=== PATIENT | male | born 1960 | race Caucasian/White ===

== ENCOUNTER 2018-03-16 12:27 | Inpatient (IN) | payer OTHER ==
[~2018-03-16] VITALS: Ht 182.9 cm; Wt 81.1 kg
[2018-03-16 13:09] LABS: HEMATOCRIT 45.6 % (38.0-50.0); HEMOGLOBIN 16.2 G/DL (12.5-16.6); MCH 31.8 PG (29.0-34.0); MCHC 35.5 G/DL (30.0-36.0); MCV 89.4 FL (86-99); PLATELET COUNT 172 K/uL (156-360); RBC DIS.WIDTH-CV 12.7 % (11.8-14.6); RBC DIS.WIDTH-SD 41.7 % (39-53)
[2018-03-16 13:42] LABS: ALBUMIN 4.4 G/DL (3.2-4.8); ALKALINE PHOSPHATASE 70 IU/L (3-129); ALT (GPT) 19 IU/L (3-49); AST (GOT) 15 IU/L (2-34); CHLORIDE 101 MEQ/L (99-109); GFR ESTIMATE (CALCULATED) > 59 mL/min/ (58.99-99999); GLUCOSE 121 mg/dL (70-99); POTASSIUM 4.2 MEQ/L (3.7-5.4); SODIUM 138 MEQ/L (136-147); TOTAL PROTEIN 6.9 G/DL (6.4-8.3); UREA NITROGEN (BUN) 11 mg/dL (9-23)
[2018-03-16 14:55] LABS: LIPASE 37 U/L (1.0-51.0)
[2018-03-16 16:18] LABS: APPEARANCE CLEAR ((CLEAR)); BILIRUBIN NEGATIVE; BLOOD NEGATIVE; COLOR STRAW ((YELLOW)); GLUCOSE (STRIP) NEGATIVE; KETONES 5; LEUKOCYTES NEGATIVE; NITRITE NEGATIVE; PROTEIN (STRIP) NEGATIVE; UCUL ADDED? NO; UROBILINOGEN 0.2 MG/DL (0.2-1.0)
[2018-03-16] MEDS ORDERED: OMEPRAZOLE20 M2 PO (19:01)
[2018-03-16] MEDS ORDERED: ADVIL,NUPRIN,M200 MG PO (19:01)
[2018-03-16 23:09] VITALS: BP 134/81
[2018-03-17 03:40] VITALS: BP 130/70
[2018-03-17 06:11] LABS: BASOPHIL (%) 0.1 % (0-1); EOSINOPHIL (%) 0 % (0-5); HEMATOCRIT 43.3 % (38.0-50.0); HEMOGLOBIN 14.8 G/DL (12.5-16.6); IMMATURE GRANULOCYTE (%) 0.6 % (0.0-0.7); LYMPHOCYTE (%) 2.6 % (15-42); LYMPHOCYTE COUNT 0.5 K/uL (1.0-2.8); MCH 30.5 PG (29.0-34.0); MCHC 34.2 G/DL (30.0-36.0); MCV 89.1 FL (86-99); MONOCYTE (%) 4.6 % (3-12); MONOCYTE COUNT 0.9 K/uL (0-0.8); NEUTROPHIL (%) 92.1 % (45-76); NEUTROPHIL COUNT 16.9 K/uL (1.8-6.4); PLATELET COUNT 168 K/uL (156-360); RBC DIS.WIDTH-CV 13.1 % (11.8-14.6); RBC DIS.WIDTH-SD 42.6 % (39-53); RED BLOOD COUNT 4.86 M/uL (4.00-5.50); WHITE BLOOD COUNT 18.4 K/uL (4.1-10.2)
[2018-03-17 06:35] LABS: C-REACTIVE PROTEIN 84.6 MG/L (0-10); CHLORIDE 102 MEQ/L (99-109); GFR ESTIMATE (CALCULATED) > 59 mL/min/ (58.99-99999); GLUCOSE 161 mg/dL (70-99); POTASSIUM 4.1 MEQ/L (3.7-5.4); SODIUM 136 MEQ/L (136-147); UREA NITROGEN (BUN) 12 mg/dL (9-23)
[2018-03-17 08:25] VITALS: BP 122/68
[2018-03-17 12:40] VITALS: BP 126/65
[2018-03-17 16:09] VITALS: BP 124/73
[2018-03-17 20:21] VITALS: BP 147/82
[2018-03-17 23:57] VITALS: BP 148/84
[2018-03-18 03:18] VITALS: BP 148/86
[2018-03-18 08:09] VITALS: BP 152/80
[2018-03-18 08:49] LABS: HEMATOCRIT 38.7 % (38.0-50.0); HEMOGLOBIN 13.7 G/DL (12.5-16.6); MCH 31.4 PG (29.0-34.0); MCHC 35.4 G/DL (30.0-36.0); MCV 88.8 FL (86-99); RBC DIS.WIDTH-CV 13.2 % (11.8-14.6); RBC DIS.WIDTH-SD 43.4 % (39-53); RED BLOOD COUNT 4.36 M/uL (4.00-5.50); WHITE BLOOD COUNT 10.4 K/uL (4.1-10.2)
[2018-03-18 09:36] LABS: BASOPHIL (%) 0.4 % (0-1); EOSINOPHIL (%) 0.1 % (0-5); IMMATURE GRANULOCYTE (%) 0.5 % (0.0-0.7); LYMPHOCYTE (%) 9.4 % (15-42); MONOCYTE (%) 8.1 % (3-12); MONOCYTE COUNT 0.9 K/uL (0-0.8); NEUTROPHIL (%) 81.5 % (45-76); NEUTROPHIL COUNT 8.5 K/uL (1.8-6.4); PLAT.SUFFICIENCY DECREASED
[2018-03-18 09:48] LABS: PLATELET COUNT 90 K/uL (156-360)
[2018-03-18] MEDS ORDERED: HYDROCODON-ACE1 EAC7 PO (11:09)
[2018-03-18 12:04] VITALS: BP 159/88
[2018-03-18 16:09] VITALS: BP 128/81
[2018-03-18 19:55] VITALS: BP 123/78
[2018-03-18 23:54] VITALS: BP 127/77
[2018-03-19 03:45] VITALS: BP 133/80
[2018-03-19 06:49] LABS: BASOPHIL (%) 0.6 % (0-1); EOSINOPHIL (%) 1.6 % (0-5); EOSINOPHIL COUNT 0.1 K/uL (0-0.3); HEMATOCRIT 34.2 % (38.0-50.0); IMMATURE GRANULOCYTE (%) 0.3 % (0.0-0.7); LYMPHOCYTE (%) 16.9 % (15-42); LYMPHOCYTE COUNT 1.1 K/uL (1.0-2.8); MCH 30.6 PG (29.0-34.0); MCHC 33.9 G/DL (30.0-36.0); MCV 90.2 FL (86-99); MONOCYTE (%) 11.1 % (3-12); MONOCYTE COUNT 0.7 K/uL (0-0.8); NEUTROPHIL (%) 69.5 % (45-76); NEUTROPHIL COUNT 4.4 K/uL (1.8-6.4); RBC DIS.WIDTH-CV 13.4 % (11.8-14.6); RBC DIS.WIDTH-SD 44.2 % (39-53); RED BLOOD COUNT 3.79 M/uL (4.00-5.50); WHITE BLOOD COUNT 6.4 K/uL (4.1-10.2)
[2018-03-19 06:52] LABS: HEMOGLOBIN 11.6 G/DL (12.5-16.6); PLATELET COUNT 124 K/uL (156-360)
[2018-03-19 07:43] VITALS: BP 147/92
[2018-03-19 15:35] VITALS: BP 137/93
== END 2018-03-19 18:06 | disposition home or self-care (01) | DRG 341 ==
LOC: EME 12:27 → EDOF 18:12 → ENRESERV 18:25 → 2EAST 22:57 → ENPENDDIS 03-19 09:48 → 2EAST 03-19 18:06
PROVIDERS: Physician Assistant; Physician Assistant Medical; Student in an Organized Health Care Education/Training Program
DX: K35.80 Unspecified acute appendicitis (principal); Z79.899 Other long term (current) drug therapy; R19.7 Diarrhea, unspecified; K21.9 Gastro-esophageal reflux disease without esophagitis; N26.1 Atrophy of kidney (terminal); N13.30 Unspecified hydronephrosis; K42.9 Umbilical hernia without obstruction or gangrene; J86.9 Pyothorax without fistula
CPT/HCPCS: 74177; 80048; 80053; 81003; 83690; 85025; 85027; 86140; 87177; 87493; 87506; 88304; 99281; 99285; G0378; J0131; J0330; J1170; J1200; J1885; J2405; J3010; J7030; J7120; J7643; S0074

== ENCOUNTER → 2018-04-27 | Outpatient (CLI) | payer OTHER ==
[~2018-04-27] MED LIST: ADVIL,NUPRIN,M200 MG PO; HYDROCODON-ACE1 EAC7 PO; OMEPRAZOLE20 M2 PO
== END | disposition home or self-care (01) ==
LOC: NUC 10:55
DX: N13.1 Hydronephrosis with ureteral stricture, not elsewhere classified (principal); N28.89 Other specified disorders of kidney and ureter
CPT/HCPCS: 78709; A9562; J1940